=== PATIENT | female | born 1995 | race Two or more races ===

== ENCOUNTER 2023-05-13 10:16 | Emergency (ER) | payer OTHER ==
[~2023-05-13] VITALS: Ht 154.9 cm; Wt 58.1 kg
[2023-05-13 10:24] VITALS: BP 120/79; TEMP 98.4
[2023-05-13] MEDS ORDERED: DOXY-326 PO (10:42)
[2023-05-13] MEDS ORDERED: CEFTRIAXONE 500 MG VIAL ONE (10:47)
[2023-05-13] MEDS ORDERED: LIDOCAINE 1% INJ 50 ML MDV IJ ONE (10:48)
[2023-05-13 11:00] VITALS: O2SAT 99
[2023-05-13] MEDS ORDERED: CEFTRIAXONE 500 MG VIAL IM ONE (11:00)
[2023-05-15 08:06] LABS: CHLAMYDIA TRACHOMATIS NAA Negative (Negative); NEISSERIA GONORRHOEAE NAA Negative (Negative)
== END 2023-05-13 11:07 | disposition home or self-care (01) ==
LOC: ER 10:16
DX: Z71.1 Person with feared health complaint in whom no diagnosis is made (principal); Z88.8 Allergy status to other drugs, medicaments and biological substances
CPT/HCPCS: 99283; 96372; 87491; 87591; J3490; J0696